=== PATIENT | female | born 1960 | race Caucasian/White ===

== ENCOUNTER → 2016-06-23 | Outpatient (CLI) | payer MEDICARE ==
[2015-12-04 14:44] VITALS: BP 114/62
[~2016-06-23] MED LIST: ALBU2.5V5 NEB; ASPI-482 PO; ATOR10TA PO; CLON0.5T3 PO; DOXY100T PO; LEVO25TA2 PO; LITH150C PO; OMEP20CA9 PO
--- NOTE | 2016-06-23 16:26 | KCIC ---
PROCEDURE Right shoulder, three views. HISTORY Right shoulder pain since December. History of calcified lung masses on CT. COMPARISON CT chest with contrast September 25, 2013. FINDINGS No acute fracture or dislocation of the right shoulder. Acromioclavicular arthropathy. No glenohumeral degenerative changes are seen. The partially calcified masses in the visualized right lung are stable compared to the prior CT. Soft tissues unremarkable. IMPRESSION No acute fracture or dislocation of the right shoulder. Electronically signed by: Audi Warren MD (Jun 23, 2016 16:24:52)
== END | disposition home or self-care (01) ==
LOC: KCIC 10:25
PROVIDERS: ATTEND Family Medicine
DX: M25.511 Pain in right shoulder (principal)
CPT/HCPCS: 73030

== ENCOUNTER → 2016-07-29 | Outpatient (CLI) | payer MEDICARE ==
[2015-12-04 14:44] VITALS: BP 114/62
--- NOTE | 2016-07-29 12:50 | KCIC ---
PROCEDURE MR of the right shoulder HISTORY Right shoulder pain since March. Limited range of motion. TECHNIQUE Standard noncontrast images are obtained. COMPARISON FINDINGS The acromioclavicular joint is mildly degenerative. There is some thickening and signal of the rotator cuff compatible with tendinosis. Partial thickness undersurface tear of the rotator cuff at the supraspinatus tendon and anterior infraspinatus tendon, about 80 percent deep. No complete through and through bursal layer tear. No significant subdeltoid bursal fluid. There is acute intramuscular edema/fluid within the infraspinatus compatible with an acute strain. The subscapularis tendon appears intact. No significant joint effusion. No evidence of a labrum tear. No paralabral cyst. No acute articular cartilage defect. The biceps tendon is intact. There is no bone lesion or acute fracture. IMPRESSION Deep undersurface tear of the supraspinatus tendon and anterior infraspinatus tendon. No through and through rupture. Acute intramuscular strain of the infraspinatus. Electronically signed by: Elfego Velázquez MD (Jul 29, 2016 12:49:03)
== END | disposition home or self-care (01) ==
LOC: KCIC MRI 11:34
PROVIDERS: ATTEND Orthopaedic Surgery Sports Medicine
DX: M25.511 Pain in right shoulder (principal)
CPT/HCPCS: 73221

== ENCOUNTER 2016-11-01 08:46 | Day surgery (SDC) | payer MEDICARE ==
[~2016-11-01] VITALS: Ht 167.6 cm; Wt 86.2 kg
[~2016-11-01 08:46] MED LIST changes: +CHOL10003 PO; +ESCITALOPRAM OX10 MG PO; +FERR-26 PO; +HYDROmorphone 2 MG/ML VIAL IV PRN; +IV RINGERS,LACTATED 1000ML 1,000 ML IV SCH; +LAMO150T PO; +LEVO125T5 PO; -LEVO25TA2 PO; +LEVO25TA55 PO; +LIDOCAINE 1% 1 ML SYRINGE. ID PRN; +LOVA20TA2 PO; +MEPERIDINE PF 25 MG/ML VIAL. IV PRN; +MIDAZOLAM HCL/PF 2 MG/2 ML VIAL. IV PRN; +MORPHINE SULFATE 4 MG/ML DISP.SYRIN. IV PRN; +PROCHLORPERAZINE 10 MG/2 ML VIAL. IV PRN; +TRAM50TA PO; +VITA150T PO; +diphenhydrAMINE 50 MG/ML VIAL IV PRN; +fentaNYL PF VIAL 100 MCG/2 ML VIAL IV PRN
[2016-11-01] MEDS ORDERED: LIDOCAINE 1% PF 30 ML VIAL. ONE (09:09)
[2016-11-01] MEDS ORDERED: BUPIVACAINE MPF 0.5% 30 ML VIAL. ONE ×2 (09:09→09:25)
[2016-11-01] MEDS ORDERED: EPINEPHrine VIAL 30 MG/30 ML VIAL ONE (09:09)
--- NOTE | 2016-11-01 09:10 | DISCH ---
DISCHARGE INSTRUCTIONS Condition on Discharge Condition on Discharge: Stable Activity After Discharge Activity Instructions for Disc: Other, see below Other activity instructions: arm to remain in sling Bathing Instructions: Shower-keep dressing dry Weight Bearing Status after Di: Non weight bearing Diet after Discharge Diet after Discharge: Regular Wound Incision Care Wound/Incision Care: Ice to area for comfort, Keep wound/cast CDI, Change dressing Contacting the DR. after DC Call your doctor for: Concerns you may have Follow-Up Follow up with: Nevin in 2wks Treatment/Equipment after DC Adaptive Equipment Issued: None ANGELIQUE GELLER II, MD Nov 01, 2016 09:10
--- NOTE | 2016-11-01 09:12 | PDOC ---
BRIEF OPERATIVE NOTE Date: Nov 01, 2016 Pre-Op Diagnosis R shoulder RTC tear; mass Post-Op Diagnosis same Procedure Performed R shoulder scope, RTC repair; mass excision Surgeon Nevin Escalante Anesthesia Type: General, Regional Blood Loss 25mL Specimens Obtained soft tissue mass sent to pathology Complications none ANGELIQUE GELLER II, MD Nov 01, 2016 09:12
[2016-11-01] MEDS ORDERED: PROPOFOL 20 ML IV ONE (09:29)
[2016-11-01] MEDS ORDERED: DEXAMETHASONE SOD PHOS 20 MG/5 ML VIAL. ONE (09:29)
[2016-11-01] MEDS ORDERED: FAMOTIDINE 20 MG/2 ML VIAL ONE (09:29)
[2016-11-01] MEDS ORDERED: ONDANSETRON PF 4 MG/2 ML VIAL. ONE (09:29)
[2016-11-01] MEDS ORDERED: LIDOCAINE 2% PF Vial for OR 5 ML VIAL. ONE (09:29)
[2016-11-01] MEDS ORDERED: fentaNYL PF VIAL 100 MCG/2 ML VIAL ONE (09:29)
[2016-11-01] MEDS ORDERED: ROCURONIUM 50 MG/5 ML VIAL. ONE (09:30)
--- NOTE | 2016-11-01 09:50 | PDOC4 ---
Operative Note Operative Note Date of surgery 11/01/2016 Surgeon Hamilton Escalante Anesthesia Gen. Preoperative diagnosis right shoulder rotator cuff tear and cyst at right shoulder postoperative diagnosis same Procedure performed: #1 arthroscopic right shoulder rotator cuff repair #2 cyst excision from right shoulder Findings: She had some minor fraying of her labrum and biceps tendon. Glenohumeral cartilage was intact. She had a partial-thickness tear involving greater than 50% of the tendon at the's leading edge of the supraspinatus. The mass was firm and well encapsulated with fibrotic tissue and was easily excised. Specimens cyst was sent to pathology Components inserted [employer] helacoil anchor Complications none Estimated blood loss 25mL Reason for procedure: Patient is a very pleasant 56-year-old female with persistent pain and dysfunction of her right shoulder. Clinical and radiographic workup including MRI were consistent with the above preoperative diagnosis and after failure of conservative therapies, we had a discussion of the risks, benefits, and alternatives to proceeding with the above surgery and she elected to proceed. Description of procedure: Patient was greeted in the preoperative area by myself for the correct extremity was marked and verified. She was taken to the preoperative holding area where a regional nerve block was placed. She was taken back to the operative suite and transferred Chumley supine to the OR table and had successful induction of a general anesthesia. We placed a large pad under her hips and set her up in a beachchair position. Her C-spine was maintained in a neutral position and all pressure points were padded. She was secured to the bed. We then proceeded to prep and drape right upper extremity in our usual sterile fashion and conducted a standard preoperative timeout. Next , I palpated and marked her surface anatomy and used a spinal needle to localize her posterior superior portal and then introduced a blunt arthroscopic trocar into the glenohumeral joint. I then used a spinal needle to localize an anterosuperior portal and incised skin in accordance with this. I then introduced a blunt trocar to dilate the hole followed by my probe. I conducted my diagnostic arthroscopy with the above-noted findings. I then began debriding the tendon and preparing the bony bed from an intra-articular vantage point. I then passed a PDS suture through the damaged portion of the tendon using a spinal needle. I then withdrew my camera and arthroscopic instrumentation and reintroduced the blunt arthroscopic trocar into the subacromial space and performed a bursectomy. I identified the PDS suture and was easily able to insert a blunt trocar into the tendon there. I continued my debridement of this area I continued on with my tendon and footprint preparation. After this, I used the trocar to drill holes for my suture suture anchor, using 1 of these. I then made a stab incision for an accessory anterolateral portal for suture management. I withdrew the sutures through this hole. I then placed a large cannula through the lateral portal. I then used the [employer]ce[employer] passing device to shuttle the sutures through in a simple configuration and tied them down from posterior to anterior. I took the arm through gentle range of motion and noted no gapping at the repair site. I then removed all excess arthroscopic fluid. I then withdrew the arthroscopic instrumentation. I then used a scalpel to incise the skin over the mass and tenotomies to dissect around the mass and delivered from the operative field with the assistance of an Allis clamp. Electrocautery was used in the wound bed for hemostasis. After this I injected local anesthetic into the subacromial space and kaycee-her portal incisions. The mass was sent off for specimen. The portals were closed with simple interrupted 3-0 nylon. I used inverted interrupted 20 at the subcutaneous tissue over the cyst excision area followed by nylon for skin. The shoulder was cleansed and dried and a sterile dressing was applied. Prior to a, pushing wound closure all counts were reported as correct 2. HAMILTON GELLER II, MD Nov 01, 2016 09:50
[2016-11-01] MEDS ORDERED: DOCU-109 PO (10:14)
[2016-11-01] MEDS ORDERED: ONDA4TAB10 SL (10:23)
[2016-11-01] MEDS ORDERED: OXYC-323 PO (10:29)
[2016-11-01] MEDS ORDERED: HYDR-2762 PO (10:31)
[2016-11-01] MEDS ORDERED: GLYCOPYRROLATE 1 MG/5 ML VIAL. ONE (10:43)
[2016-11-01] MEDS ORDERED: NEOSTIGMINE METHYLSULFATE 5 MG/5 ML SYRINGE. ONE (10:43)
[2016-11-01] MEDS ORDERED: SEVOFLURANE 61 TO 120 MINUTES. IH ONE (10:48)
[2016-11-01] MEDS: MORPHINE SULFATE 4 MG/ML DISP.SYRIN. IV PRN ×2 (11:14→11:54)
[2016-11-01] MEDS ORDERED: oxyCODONE/APAP 5/325 1 TAB TABLET PO ONE (11:45)
[2016-11-01 13:00] VITALS: BP 97/53
== END 2016-11-01 13:15 | disposition home or self-care (01) ==
LOC: SURG 08:46
PROVIDERS: ATTEND Orthopaedic Surgery Sports Medicine
DX: S46.011A Strain of muscle(s) and tendon(s) of the rotator cuff of right shoulder, initial encounter (principal); X58.XXXA Exposure to other specified factors, initial encounter; Y93.89 Activity, other specified; Y92.89 Other specified places as the place of occurrence of the external cause; Y99.9 Unspecified external cause status; Z86.69 Personal history of other diseases of the nervous system and sense organs; Z86.73 Personal history of transient ischemic attack (TIA), and cerebral infarction without residual deficits; E78.00 Pure hypercholesterolemia, unspecified; J44.9 Chronic obstructive pulmonary disease, unspecified; E66.9 Obesity, unspecified; Z68.43 Body mass index [BMI] 50.0-59.9, adult; K21.9 Gastro-esophageal reflux disease without esophagitis; Z98.51 Tubal ligation status; Z87.39 Personal history of other diseases of the musculoskeletal system and connective tissue; Z96.651 Presence of right artificial knee joint; Z86.39 Personal history of other endocrine, nutritional and metabolic disease; E03.9 Hypothyroidism, unspecified; F41.9 Anxiety disorder, unspecified; F32.9 Major depressive disorder, single episode, unspecified; Z72.0 Tobacco use; Z88.6 Allergy status to analgesic agent; Z88.3 Allergy status to other anti-infective agents
CPT/HCPCS: 29827; C1713; C1782; J0171; J0690; J0780; J1100; J2250; J2270; J2405; J2704; J2710; J3010; J3490; S0028

== ENCOUNTER → 2017-02-14 | Outpatient (CLI) | payer MEDICARE ==
[~2017-02-14] MED LIST changes: +DOCU-109 PO; +HYDR-2762 PO; -HYDROmorphone 2 MG/ML VIAL IV PRN; -IV RINGERS,LACTATED 1000ML 1,000 ML IV SCH; -LIDOCAINE 1% 1 ML SYRINGE. ID PRN; -MEPERIDINE PF 25 MG/ML VIAL. IV PRN; -MIDAZOLAM HCL/PF 2 MG/2 ML VIAL. IV PRN; -MORPHINE SULFATE 4 MG/ML DISP.SYRIN. IV PRN; +ONDA4TAB10 SL; +OXYC-323 PO; -PROCHLORPERAZINE 10 MG/2 ML VIAL. IV PRN; -diphenhydrAMINE 50 MG/ML VIAL IV PRN; -fentaNYL PF VIAL 100 MCG/2 ML VIAL IV PRN
--- NOTE | 2017-02-15 11:56 | KCIC ---
DATE: 02/14/2017 EXAM: MAMMO KHALIF SCREENING BILATERAL HISTORY: Screening COMPARISON: 5 years ago This study was interpreted with the benefit of Computerized Aided Detection (CAD). FINDINGS: Breast Density: FATTY The Breast Parenchyma is primarily fatty replaced. Breast parenchyma level density A.. There is a well-defined nodule in the periareolar position of the left breast. This appears unchanged relative to the previous exam. No spiculated mass is seen in either breast. No suspect calcifications are seen. The appearance of the breasts, overall, as unchanged IMPRESSION: Benign findings BI-RADS CATEGORY: 2 BENIGN FINDING(S) RECOMMENDED FOLLOW-UP: 12M 12 MONTH FOLLOW-UP PQRS compliance statement: Patient information was entered into a reminder system with a target due date 02/14/2018 for the next mammogram. Mammography is a sensitive method for finding small breast cancers, but it does not detect them all and is not a substitute for careful clinical examination. A negative mammogram does not negate a clinically suspicious finding and should not result in delay in biopsying a clinically suspicious abnormality. "Our facility is accredited by the [employer] Mammography Program."
== END | disposition home or self-care (01) ==
LOC: KCIC MAMMO 14:36
PROVIDERS: ATTEND Family Medicine
DX: Z12.31 Encounter for screening mammogram for malignant neoplasm of breast (principal)
CPT/HCPCS: 77063; G0202; 77067

== ENCOUNTER 2017-03-30 17:58 | Emergency (ER) | payer MEDICARE ==
[~2017-03-30] VITALS: Ht 167.6 cm; Wt 86.2 kg
[~2017-03-30 17:58] MED LIST changes: -LAMO150T PO; +LAMO150T2 PO
[2017-03-30] MEDS ORDERED: IPRATRPIUM/ALBUTEROL 0.5/2.5MG 3 ML NEBU. NEB ONE (18:30)
[2017-03-30] MEDS ORDERED: IV NORMAL SALINE 1000ML BAG 1,000 ML IV SCH (19:01)
[2017-03-30 19:12] LABS: BILIRUBIN,URINE NEGATIVE (NEG); GLUCOSE,URINE NEGATIVE (NEG); NITRITE,URINE NEGATIVE (NEG); PROTEIN,URINE NEGATIVE (NEG-TRACE); UROBILINOGEN,URINE 0.2 mg/dL (0.2 mg/dL)
[2017-03-30] MEDS ORDERED: fentaNYL PF VIAL 100 MCG/2 ML VIAL IV PRN (19:15)
[2017-03-30] MEDS ORDERED: methylPREDNISolone SOD SUCC PF 125 MG/2 ML VIAL. IV ONE (19:15)
[2017-03-30] MEDS ORDERED: ONDANSETRON PF 4 MG/2 ML VIAL. IV ONE (19:15)
[2017-03-30 19:21] LABS: BACTERIA,URINE FEW /HPF (0-FEW); RBC,URINE 0 /HPF (0-2); SQUAMOUS EPITHELIAL CELL,UR MOD /LPF
[2017-03-30 19:22] LABS: YEAST,URINE PRESENT /HPF
[2017-03-30 19:41] LABS: BASO % 1 % (0-3); EOS % 6 % (0-3); HEMATOCRIT 42.3 % (36.0-47.0); HEMOGLOBIN 14.2 g/dL (12.0-15.5); LYMPH % 40 % (24-48); MEAN CORPUSCULAR HEMOGLOBIN 32 pg (25-35); MEAN CORPUSCULAR HGB CONC 34 g/dL (31-37); MEAN CORPUSCULAR VOLUME 94 fL (79-100); MONO % 6 % (0-9); NEUT % 47 % (31-73); PLATELET COUNT 210 x10^3/uL (140-400); RED CELL DISTRIBUTION WIDTH 14.4 % (11.5-14.5); WHITE BLOOD COUNT 7.5 x10^3/uL (4.0-11.0)
--- NOTE | 2017-03-30 19:43 | PHYS DOC ---
Past Medical History Past Medical History: High Cholesterol, Other Additional Past Medical Histor: HISTOPLASMOSIS; hernia Past Surgical History: , Other Additional Past Surgical Histo: L FEMUR biop; rot cuff, GASTRIC BYPASS, ABLASION, REMOVED HARDWARE,SINUS SX Alcohol Use: None Drug Use: None Adult General Chief Complaint Chief Complaint: SHORTNESS OF BREATH HPI HPI Patient is a 56 year old female who presents with complaint of cough and shortness of breath over the past 4-5 days. Patient states that she started having symptoms shortly after Thanksgiving. Patient states that she had a grandson who has had similar symptoms and she states that he was recently diagnosed with pneumonia. Patient states that she has history of COPD and states that her symptoms have been worsening. Patient has been using over-the- counter cough and cold medication as well as albuterol with no significant improvement in symptoms. Patient states that she has had productive cough of yellowish sputum. Patient states that her coughing is causing aggravation of her left-sided hernia which she has received a previous mesh repair in the past. Patient denies any nausea, vomiting, fever, or diarrhea. Review of Systems Review of Systems Constitutional: Denies fever or chills [] Eyes: Denies change in visual acuity, redness, or eye pain [] HENT: Denies nasal congestion or sore throat [] Respiratory: Productive cough, shortness of breath[] Cardiovascular: Denies chest pain or edema[] GI: Pain near abdominal hernia site, denies nausea, vomiting, or diarrhea[] : Denies dysuria or hematuria [] Musculoskeletal: Denies back pain or joint pain [] Integument: Denies rash or skin lesions [] Neurologic: Denies headache, focal weakness or sensory changes [] All other systems were reviewed and found to be within normal limits, except as documented in this note. Current Medications Current Medications Current Medications Medications (Trade) Dose Ordered Sig/Bishnu Start Time Stop Time Status Last Admin Dose Admin Albuterol/ Ipratropium (Duoneb) 3 ml 1X ONCE 03/30/17 18:30 03/30/17 18:31 DC 03/30/17 18:39 3 ML Fentanyl Citrate (Fentanyl 2ml Vial) 25 mcg PRN Q15MIN PRN 03/30/17 19:15 03/31/17 19:14 03/30/17 19:43 25 MCG Methylprednisolone Sodium Succinate (SOLU-Medrol 125MG VIAL) 125 mg 1X ONCE 03/30/17 19:15 03/30/17 19:16 DC 03/30/17 19:43 125 MG Ondansetron HCl (Zofran) 4 mg 1X ONCE 03/30/17 19:15 03/30/17 19:16 DC 03/30/17 19:44 4 MG Sodium Chloride 1,000 ml @ 1,000 mls/hr Q1H 03/30/17 19:01 03/30/17 20:00 DC 03/30/17 19:43 1,000 MLS/HR Allergies Allergies Allergies Coded Allergies Type Severity Reaction Last Updated Verified codeine Allergy Intermediate palpitations 11/01/16 Yes levofloxacin Allergy Intermediate severe projectile vomiting 11/01/16 Yes Physical Exam Physical Exam Constitutional: Alert, afebrile, appears in [id number]-nimphozl discomfort. [] HENT: Normocephalic, atraumatic, bilateral external ears normal, oropharynx moist, no oral exudates, nose normal. [] Eyes: PERRLA, EOMI, conjunctiva normal, no discharge. [] Neck: Normal range of motion, no tenderness, supple, no stridor. [] Cardiovascular:Heart rate regular rhythm, no murmur [] Lungs & Thorax: Mildly restricted air movement bilaterally, no rales, no wheezes [] Abdomen: Bowel sounds normal, soft, no tenderness, no masses, no pulsatile masses. [] Skin: Warm, dry, no erythema, no rash. [] Back: No tenderness, no CVA tenderness. [] Extremities: No tenderness, no cyanosis, no clubbing, ROM intact, no edema. [] Neurologic: Alert and oriented X 3, normal motor function, normal sensory function, no focal deficits noted. [] Current Patient Data Vital Signs Vital Signs Date Time Temp Pulse Resp B/P (MAP) Pulse Ox O2 Delivery O2 Flow Rate FiO2 03/30/17 19:43 16 93 Room Air 03/30/17 18:02 98.6 79 116/56 (76) 98.6 Lab Values Laboratory Tests Test 03/30/17 18:10 03/30/17 19:30 Urine Collection Type Unknown Urine Color Yellow Urine Clarity Clear Urine pH 6.0 Urine Specific [place] 1.015 Urine Protein Negative mg/dL (NEG-TRACE) Urine Glucose (UA) Negative mg/dL (NEG) Urine Ketones (Stick) Negative mg/dL (NEG) Urine Blood Negative (NEG) Urine Nitrite Negative (NEG) Urine Bilirubin Negative (NEG) Urine Urobilinogen Dipstick 0.2 mg/dL (0.2 mg/dL) Urine Leukocyte Esterase Small (NEG) Urine RBC 0 /HPF (0-2) Urine WBC 1-4 /HPF (0-4) Urine Squamous Epithelial Cells Mod /LPF Urine Bacteria Few /HPF (0-FEW) Urine Mucus Mod /LPF Urine Yeast Present /HPF White Blood Count 7.5 x10^3/uL (4.0-11.0) Red Blood Count 4.50 x10^6/uL (3.50-5.40) Hemoglobin 14.2 g/dL (12.0-15.5) Hematocrit 42.3 % (36.0-47.0) Mean Corpuscular Volume 94 fL (79-100) Mean Corpuscular Hemoglobin 32 pg (25-35) Mean Corpuscular Hemoglobin Concent 34 g/dL (31-37) Red Cell Distribution Width 14.4 % (11.5-14.5) Platelet Count 210 x10^3/uL (140-400) Neutrophils (%) (Auto) 47 % (31-73) Lymphocytes (%) (Auto) 40 % (24-48) Monocytes (%) (Auto) 6 % (0-9) Eosinophils (%) (Auto) 6 % (0-3) H Basophils (%) (Auto) 1 % (0-3) Neutrophils # (Auto) 3.5 x10^3uL (1.8-7.7) Lymphocytes # (Auto) 3.0 x10^3/uL (1.0-4.8) Monocytes # (Auto) 0.5 x10^3/uL (0.0-1.1) Eosinophils # (Auto) 0.5 x10^3/uL (0.0-0.7) Basophils # (Auto) 0.0 x10^3/uL (0.0-0.2) Sodium Level 140 mmol/L (136-145) Potassium Level 3.8 mmol/L (3.5-5.1) Chloride Level 104 mmol/L (98-107) Carbon Dioxide Level 30 mmol/L (21-32) Anion Gap 6 (6-14) Blood Urea Nitrogen 10 mg/dL (7-20) Creatinine 0.8 mg/dL (0.6-1.0) Estimated GFR (Cockcroft-Gault) 74.7 BUN/Creatinine Ratio 13 (6-20) Glucose Level 99 mg/dL (70-99) Calcium Level 9.3 mg/dL (8.5-10.1) Total Bilirubin 0.2 mg/dL (0.2-1.0) Aspartate Amino Transferase (AST) 17 U/L (15-37) Alanine Aminotransferase (ALT) 22 U/L (14-59) Alkaline Phosphatase 86 U/L (46-116) Total Protein 6.7 g/dL (6.4-8.2) Albumin 3.3 g/dL (3.4-5.0) L Albumin/Globulin Ratio 1.0 (1.0-1.7) Laboratory Tests 03/30/17 19:30 Laboratory Tests 03/30/17 19:30 EKG EKG Interpreted by me: Heart rate 64, sinus rhythm, normal intervals, normal axis, no acute ST/T-wave abnormalities present[] Radiology/Procedures Radiology/Procedures Two-view chest x-ray interpreted by me: Stable histoplasmosis lesions, no new infiltrates or effusions, normal cardiac silhouette[] Course & Med Decision Making Course & Med Decision Making Pertinent Labs and Imaging studies reviewed. (See chart for details) Patient was given DuoNeb and Solu-Medrol in the emergency department. Patient's chest x-ray shows no evidence of acute pneumonia and patient's lab work is unremarkable at this time. The patient's symptoms appear consistent with an upper respiratory infection and exacerbation of patient's underlying COPD. Patient will be continued on oral prednisone for treatment and advised to use her albuterol nebulizer 1-2 unit doses every 4 hours as needed for wheezing. Recommended follow-up with primary doctor in 2-3 days for reevaluation. Advised return to the emergency department for any worsening symptoms. Patient voiced understanding and in agreement with treatment plan. Dragon Disclaimer Dragon Disclaimer This electronic medical record was generated, in whole or in part, using a voice recognition dictation system. Departure Departure Impression: Primary Impression: COPD exacerbation Additional Impression: Upper respiratory infection Disposition: 01 HOME, SELF-CARE Condition: IMPROVED Referrals: JAMES NEWBY MD (PCP) Patient Instructions: Chronic Obstructive Pulmonary Disease, Upper Respiratory Infection, Adult Additional Instructions: Follow-up with your primary doctor in 2-3 days for reevaluation. Return to the emergency department for any worsening symptoms. Scripts Prednisone (PREDNISONE) 10 Mg Tablet 10 MG PO UD for PREDNISONE TAPER, #39 TAB 0 Refills Take 3 tablets by mouth twice a day for 3 days, then take 2 tablets by mouth twice a day for 3 days, then take 1 tablet by mouth twice a day for 3 days, then take 1 tablet by mouth daily x 3 days, then stop. Prov: ALTHEA VALERIO MD 03/30/17 Problem Qualifiers Additional Impression: Upper respiratory infection URI type: unspecified URI Qualified Codes: J06.9 - Acute upper respiratory infection, unspecified ALTHEA VALERIO MD Mar 30, 2017 19:43
[2017-03-30 19:54] LABS: CALCIUM 9.3 mg/dL (8.5-10.1); CREATININE 0.8 mg/dL (0.6-1.0); GFR 74.7; POTASSIUM 3.8 mmol/L (3.5-5.1)
[2017-03-30 19:59] LABS: ALBUMIN 3.3 g/dL (3.4-5.0); TOTAL BILIRUBIN 0.2 mg/dL (0.2-1.0); TOTAL PROTEIN 6.7 g/dL (6.4-8.2)
[2017-03-30] MEDS ORDERED: PRED-220 PO (20:30)
[2017-03-30 20:34] VITALS: BP 105/57
[2017-03-30 20:56] LABS: OBC FLU VALID
--- NOTE | 2017-03-31 06:59 | EKG ---
[facility] [address] [place] [address] Test Date: 2017-03-30 Test Time: 18:16:08 Pat Name: AKOSUA COTTON Department: Room: Gender: F Manager [employer]: : 1960 Requested By: ALTHEA VALERIO Order Number: [id number] Reading MD: Linden Garcia Measurements Intervals Likely Rate: 64 P: 41 VT: 164 QRS: 71 QRSD: 92 T: 31 QT: 422 QTc: 440 Interpretive Statements SINUS RHYTHM NO SPECIFIC ECG ABNORMALITIES Electronically Signed On 04-04-2017 16:46:49 [employer]ACHINE [employer] by Linden Garcia
--- NOTE | 2017-03-31 08:06 | RAD ---
Chest, 2 views, 03/30/2017: History: Cough Comparison is made to a study from 12/03/2015. The heart size is normal. There are multiple large bilateral pulmonary masses. The previous CT study from 09/25/2013 demonstrated central calcifications. The given history is that of old histoplasmosis. Allowing for technical differences between the current PA view and a prior AP view, no definite interval change in these nodules is appreciated. The largest of these nodules measure approximately 6 cm. In diameter. No superimposed acute infiltrate is seen. There is no evidence of pleural fluid. IMPRESSION: 1. Large calcified bilateral pulmonary nodules compatible with the given history of histoplasmosis. 2. No acute abnormality is detected.
== END 2017-03-30 20:56 | disposition home or self-care (01) ==
LOC: ER 17:58
DX: J44.1 Chronic obstructive pulmonary disease with (acute) exacerbation (principal); J06.9 Acute upper respiratory infection, unspecified; E78.00 Pure hypercholesterolemia, unspecified; Z98.84 Bariatric surgery status; Z88.5 Allergy status to narcotic agent; Z88.1 Allergy status to other antibiotic agents
CPT/HCPCS: 36415; 71020; 80053; 81001; 85025; 87086; 87804; 93005; 94250; 94640; 96361; 96374; 96375; 99285; J2405; J2930; J3010; J7030; J7620

== ENCOUNTER → 2017-06-24 | Outpatient (CLI) | payer OTHER | END | disposition home or self-care (01) | LOC: KCIC CT 09:13 | DX: J32.0 Chronic maxillary sinusitis (principal); J01.01 Acute recurrent maxillary sinusitis; R51 Headache | CPT/HCPCS: 70486 ==

== ENCOUNTER 2018-03-28 17:36 | Emergency (ER) | payer OTHER ==
[~2018-03-28] VITALS: Ht 165.1 cm; Wt 92.5 kg
[~2018-03-28 17:36] MED LIST changes: +CLON0.5T11 PO; -CLON0.5T3 PO; -FERR-26 PO; +FERR325T14 PO; -HYDR-2762 PO; +HYDR-2765 PO; -OXYC-323 PO; +OXYC1TAB15 PO; +PRED-220 PO
[2018-03-28 18:05] VITALS: BP 117/62
--- NOTE | 2018-03-28 20:58 | PHYS DOC ---
Past Medical History Past Medical History: High Cholesterol, Other Additional Past Medical Histor: HISTOPLASMOSIS; hernia Past Surgical History: , Other Additional Past Surgical Histo: L FEMUR biop;Rrot cuff, GASTRIC BYPASS, ABLASION, REMOVED HARDWARE,SINUS SX Alcohol Use: None Drug Use: None Adult General Chief Complaint Chief Complaint: [facility] HPI Patient is a 57 year old female who presents with states that she fell into the wall today by slipping and hurt her right shoulder. Patient states that 2-3 months ago she had right rotator cuff repair. Patient has right shoulder pain that radiates down to the front of her right shoulder. Patient has limited range of motion the shoulder due to pain. There is no swelling or deformity in the shoulder. Patient states she took tramadol this morning. Review of Systems Review of Systems Constitutional: Denies fever or chills [] Eyes: Denies change in visual acuity, redness, or eye pain [] HENT: Denies nasal congestion or sore throat [] Respiratory: Denies cough or shortness of breath [] Cardiovascular: No additional information not addressed in HPI [] GI: Denies abdominal pain, nausea, vomiting, bloody stools or diarrhea [] : Denies dysuria or hematuria [] Musculoskeletal: Denies back pain. Right shoulder joint pain [] Integument: Denies rash or skin lesions [] Neurologic: Denies headache, focal weakness or sensory changes [] Endocrine: Denies polyuria or polydipsia [] All other systems were reviewed and found to be within normal limits, except as documented in this note. Allergies Allergies Allergies Coded Allergies Type Severity Reaction Last Updated Verified codeine Allergy Intermediate palpitations 11/01/16 Yes levofloxacin Allergy Intermediate severe projectile vomiting 11/01/16 Yes Physical Exam Physical Exam Constitutional: Well developed, well nourished, no acute distress, non-toxic appearance. [] HENT: Normocephalic, atraumatic, bilateral external ears normal, oropharynx moist, no oral exudates, nose normal. [] Eyes: PERRLA, EOMI, conjunctiva normal, no discharge. [] Neck: Normal range of motion, no tenderness, supple, no stridor. [] Cardiovascular:Heart rate regular rhythm, no murmur [] Lungs & Thorax: Bilateral breath sounds clear to auscultation [] Abdomen: Bowel sounds normal, soft, no tenderness, no masses, no pulsatile masses. [] Skin: Warm, dry, no erythema, no rash. [] Back: No tenderness, no CVA tenderness. [] Extremities: Right shoulder tenderness, no cyanosis, no clubbing, ROM intact, no edema. [] Neurologic: Alert and oriented X 3, normal motor function, normal sensory function, no focal deficits noted. [] Psychologic: Affect normal, judgement normal, mood normal. [] Current Patient Data Vital Signs Vital Signs Date Time Temp Pulse Resp B/P (MAP) Pulse Ox O2 Delivery O2 Flow Rate FiO2 03/28/18 18:05 98.2 66 18 117/62 (80) 95 Room Air 98.2 EKG EKG [] Radiology/Procedures Radiology/Procedures chest x ray rib xray, shoulder xray Course & Med Decision Making Course & Med Decision Making Patient is a 57 year old female who presents with states that she fell into the wall today by slipping and hurt her right shoulder. Patient states that 2-3 months ago she had right rotator cuff repair. Patient has right shoulder pain that radiates down to the front of her right shoulder. Patient has limited range of motion the shoulder due to pain. There is no swelling or deformity in the shoulder. Patient states she took tramadol this morning. Patient states her right ribs also hurt from a previous fall. Lungs are clear to auscultation in all lobes. Heart regular without murmur. There is pain with palpation to that right shoulder and to the front of the right shoulder there is no bruising or deformity seen. There is no swelling. Her right upper ribs aren't tender to palpation but there is no bruising or deformity seen. Patient is given an incentive spirometer to use and to follow-up with her primary care. Her x-rays look to have no acute findings. Patient does have a history of cystoplasmosis. Dragon Disclaimer Dragon Disclaimer This electronic medical record was generated, in whole or in part, using a voice recognition dictation system. Departure Departure Impression: Primary Impression: Shoulder contusion Disposition: 01 HOME, SELF-CARE Condition: STABLE Referrals: JAMES NEWBY MD (PCP) Patient Instructions: Contusion Additional Instructions: follow up with your primary care. use incentive spirometer Attending Signature Attending Signature I have reviewed the PA/HOST/HOSTESS RESTAURANT's note and plan of care. I was available for consultation as needed during the patient's visit in the emergency department. I agree with the clinical impression, plan, and disposition. Problem Qualifiers Primary Impression: Shoulder contusion Encounter type: initial encounter Laterality: right Qualified Codes: S40.011A - Contusion of right shoulder, initial encounter SATNAM HI APRN Mar 28, 2018 20:58 FRANCES GARCÍA DO Mar 29, 2018 02:14
--- NOTE | 2018-03-29 00:27 | RAD ---
Right rib series to include a PA chest radiograph 03/28/2018 CLINICAL HISTORY: Fall with right-sided chest pain. A PA digital radiograph of the chest was obtained. Two AP and two oblique digital radiographs of the right ribs were obtained. Comparison study is dated 12/03/2015. The cardiac silhouette is normal in size. The thoracic aorta is tortuous. Multiple masses are seen scattered throughout both lungs which measure 3 to 6 cm in size. They have not significantly changed. No acute pulmonary infiltrate is seen. No pleural effusion or pneumothorax is noted. Surgical clips are seen within the right upper quadrant of the abdomen consistent with a cholecystectomy. Degenerative changes are seen involving the thoracic spine. The osseous structures are grossly intact. Specifically no right-sided rib fracture is seen. IMPRESSION: No right-sided rib fracture is seen. Electronically signed by: Caleb Hernandez MD (03/29/2018 12:24 AM) [facility]
--- NOTE | 2018-03-29 00:28 | RAD ---
Three-view right shoulder radiographs 03/28/2018 CLINICAL HISTORY: Fall with injury to the right shoulder. AP internal and external rotation and transscapular digital radiographs of the right shoulder were obtained. No fracture or dislocation right shoulder is seen. Mild to moderate degenerative changes are seen involving the right glenohumeral joint and right AC joint. Partially calcified masses are seen involving the right lung. IMPRESSION: Degenerative changes are seen within the right shoulder. No acute fracture or dislocation is seen. Electronically signed by: Caleb Hernandez MD (03/29/2018 12:25 AM) [facility]
== END 2018-03-28 21:00 | disposition home or self-care (01) ==
LOC: ER 17:36
DX: S40.011A Contusion of right shoulder, initial encounter (principal); R07.89 Other chest pain; E78.00 Pure hypercholesterolemia, unspecified; Z88.1 Allergy status to other antibiotic agents; W01.0XXA Fall on same level from slipping, tripping and stumbling without subsequent striking against object, initial encounter; Y93.89 Activity, other specified; Y92.89 Other specified places as the place of occurrence of the external cause; Y99.8 Other external cause status
CPT/HCPCS: 71101; 73030; 99284

== ENCOUNTER 2018-06-22 09:53 | Emergency (ER) | payer OTHER ==
[~2018-06-22] VITALS: Ht 167.6 cm; Wt 97.5 kg
[~2018-06-22 09:53] MED LIST changes: +OMEP20CA10 PO; -OMEP20CA9 PO
[2018-06-22] MEDS ORDERED: fentaNYL PF VIAL 100 MCG/2 ML VIAL IV PRN (10:30)
[2018-06-22] MEDS ORDERED: IV NORMAL SALINE 1000ML BAG 1,000 ML IV SCH (10:30)
[2018-06-22] MEDS ORDERED: ONDANSETRON PF 4 MG/2 ML VIAL. IV ONE (10:30)
[2018-06-22] MEDS ORDERED: IOHEXOL 300 MG/ML 100ML VIAL. IV ONE (10:45)
--- NOTE | 2018-06-22 10:48 | PHYS DOC ---
Past Medical History Past Medical History: High Cholesterol, Other Additional Past Medical Histor: HISTOPLASMOSIS; hernia Past Surgical History: , Other Additional Past Surgical Histo: L FEMUR biop;Rrot cuff, GASTRIC BYPASS, ABLASION, REMOVED HARDWARE,SINUS SX Alcohol Use: None Drug Use: None Adult General Chief Complaint Chief Complaint: ABDOMINAL PAIN HPI HPI Patient is a 58-year-old female who presents with complaint of left-sided mid abdominal pain for the last few days. Patient states that she has had an abdominal wall hernia for quite some time that she states typically reduces when she lies down but she states that for at least the last 3 days it does not seem as if it has been reducing. She states that she has a great deal of pain on the left side of her abdomen which is relieved by flexing her hips and knees. She rates the pain currently at an 8-9 out of 10. She also indicates that she has had nausea and vomiting for the last 3 days and has had no bowel movements. She does admit to a small amount of flatus however. Patient states that the pain is worsened when she is standing upright. She also reports fever and chills over the last few days. Review of Systems Review of Systems Constitutional: Positive fever and chills [] Respiratory: Denies cough or shortness of breath [] Cardiovascular: No additional information not addressed in HPI [] GI: Complains of abdominal pain with nausea and vomiting. Denies diarrhea. [] Integument: Denies rash or skin lesions [] Neurologic: Denies headache, focal weakness or sensory changes [] All other systems were reviewed and found to be within normal limits, except as documented in this note. Current Medications Current Medications Current Medications Medications (Trade) Dose Ordered Sig/Bishnu Start Time Stop Time Status Last Admin Dose Admin Fentanyl Citrate (Fentanyl 2ml Vial) 50 mcg PRN Q15MIN PRN 06/22/18 10:30 06/23/18 10:29 06/22/18 11:07 50 MCG Info (CONTRAST GIVEN -- Rx MONITORING) 1 each PRN DAILY PRN 06/22/18 11:00 06/24/18 10:59 Iohexol (Omnipaque 300 Mg/ml) 75 ml 1X ONCE 06/22/18 10:45 06/22/18 10:56 DC 06/22/18 10:45 75 ML Ondansetron HCl (Zofran) 4 mg 1X ONCE 06/22/18 10:30 06/22/18 10:39 DC 06/22/18 11:05 4 MG Sodium Chloride 1,000 ml @ 1,000 mls/hr Q1H 06/22/18 10:30 06/22/18 11:29 DC 06/22/18 11:04 1,000 MLS/HR Allergies Allergies Allergies Coded Allergies Type Severity Reaction Last Updated Verified codeine Allergy Intermediate palpitations 11/01/16 Yes levofloxacin Allergy Intermediate severe projectile vomiting 11/01/16 Yes Physical Exam Physical Exam Constitutional: Well developed, well nourished, no acute distress, non-toxic appearance. [] HENT: Normocephalic, atraumatic, bilateral external ears normal, oropharynx moist, no oral exudates, nose normal. [] Eyes: PERRLA, EOMI, conjunctiva normal, no discharge. [] Neck: Normal range of motion, no tenderness, supple. [] Cardiovascular: Regular rate and rhythm [] Lungs & Thorax: Bilateral breath sounds clear to auscultation [] Abdomen: Bowel sounds diminished, soft, with marked tenderness in the left mid to lower abdomen. [] Skin: Warm, dry, no erythema, no rash. [] Extremities: No tenderness, no cyanosis, no clubbing, ROM intact, no edema. [] Neurologic: Alert and oriented X 3, no focal deficits noted. [] Current Patient Data Vital Signs Vital Signs Date Time Temp Pulse Resp B/P (MAP) Pulse Ox O2 Delivery O2 Flow Rate FiO2 06/22/18 11:07 16 96 Room Air Lab Values Laboratory Tests Test 06/22/18 10:01 06/22/18 10:59 Urine Collection Type Unknown Urine Color Yellow Urine Clarity Clear Urine pH 7.0 Urine Specific [place] <=1.005 Urine Protein Negative mg/dL (NEG-TRACE) Urine Glucose (UA) Negative mg/dL (NEG) Urine Ketones (Stick) Negative mg/dL (NEG) Urine Blood Negative (NEG) Urine Nitrite Negative (NEG) Urine Bilirubin Negative (NEG) Urine Urobilinogen Dipstick 0.2 mg/dL (0.2 mg/dL) Urine Leukocyte Esterase Negative (NEG) Urine RBC 0 /HPF (0-2) Urine WBC Occ /HPF (0-4) Urine Squamous Epithelial Cells Mod /LPF Urine Bacteria Few /HPF (0-FEW) Urine Mucus Slight /LPF White Blood Count 8.5 x10^3/uL (4.0-11.0) Red Blood Count 4.71 x10^6/uL (3.50-5.40) Hemoglobin 14.5 g/dL (12.0-15.5) Hematocrit 43.3 % (36.0-47.0) Mean Corpuscular Volume 92 fL (79-100) Mean Corpuscular Hemoglobin 31 pg (25-35) Mean Corpuscular Hemoglobin Concent 34 g/dL (31-37) Red Cell Distribution Width 14.6 % (11.5-14.5) H Platelet Count 219 x10^3/uL (140-400) Neutrophils (%) (Auto) 62 % (31-73) Lymphocytes (%) (Auto) 24 % (24-48) Monocytes (%) (Auto) 5 % (0-9) Eosinophils (%) (Auto) 7 % (0-3) H Basophils (%) (Auto) 1 % (0-3) Neutrophils # (Auto) 5.3 x10^3uL (1.8-7.7) Lymphocytes # (Auto) 2.1 x10^3/uL (1.0-4.8) Monocytes # (Auto) 0.4 x10^3/uL (0.0-1.1) Eosinophils # (Auto) 0.6 x10^3/uL (0.0-0.7) Basophils # (Auto) 0.1 x10^3/uL (0.0-0.2) Sodium Level 144 mmol/L (136-145) Potassium Level 3.8 mmol/L (3.5-5.1) Chloride Level 107 mmol/L (98-107) Carbon Dioxide Level 27 mmol/L (21-32) Anion Gap 10 (6-14) Blood Urea Nitrogen 9 mg/dL (7-20) Creatinine 0.7 mg/dL (0.6-1.0) Estimated GFR (Cockcroft-Gault) 86.6 BUN/Creatinine Ratio 13 (6-20) Glucose Level 97 mg/dL (70-99) Calcium Level 9.1 mg/dL (8.5-10.1) Total Bilirubin 0.4 mg/dL (0.2-1.0) Aspartate Amino Transferase (AST) 18 U/L (15-37) Alanine Aminotransferase (ALT) 25 U/L (14-59) Alkaline Phosphatase 111 U/L (46-116) Total Protein 6.9 g/dL (6.4-8.2) Albumin 3.2 g/dL (3.4-5.0) L Albumin/Globulin Ratio 0.9 (1.0-1.7) L Lipase 89 U/L (73-393) Laboratory Tests 06/22/18 10:59 Laboratory Tests 06/22/18 10:59 EKG EKG [] Radiology/Procedures Radiology/Procedures [] Impressions: REASON: left mid-abdomen pain assoc with abd wall hernia PROCEDURE: CT ABD PELV W/ IV CONTRST ONLY PQRS Compliance statement: One or more of the following individualized dose reduction techniques were utilized for this examination: 1. Automated exposure control. 2. Adjustment of the mA and/or kV according to patient size. 3. Use of iterative reconstruction technique. Indication:left mid-abdomen pain assoc with abd wall hernia INJ 75ML OMNI 300 NO PREV TECHNIQUE: CT abdomen and pelvis with IV contrast with multiplanar reformats. COMPARISON: CT chest from 09/25/2013 FINDINGS: Limited evaluation of solid abdominal and pelvic organs due to lack of IV contrast. Bilateral large calcified nodule is seen in the lung bases. Stable 1 cm noncalcified nodule in the left lower lobe (series 2 image 7). Multiple calcified granulomas seen in the spleen. Liver and spleen are not enlarged. No focal hepatic lesion. Status post gastric bypass. Status post cholecystectomy. Pancreas and adrenals within normal limits. No nephrolithiasis or hydronephrosis. No enlarged retroperitoneal or pelvic adenopathy. No free pelvic fluid or ascites. No bowel obstruction. Normal appendix. Left parasagittal omental fat-containing hernia seen with neck of the hernia measuring 4.8 cm and hernia sac measuring 8.8 x 3.0 cm. Anteverted uterus. Urinary bladder within normal limits. No suspicious bony lesion. IMPRESSION: Limited evaluation of solid abdominal and pelvic organs due to lack of IV contrast. 1. Multiple bilateral large calcified granulomas in the lungs. 2. Stable noncalcified pulmonary nodule in the left lower lobe dating back to 2013 and most likely benign given interval stability. 3. Left parasagittal anterior abdominal wall omental fat-containing hernia. Electronically signed by: Idris Ramon, DO (06/22/2018 12:05 PM) [id number] DICTATED and SIGNED BY: IDRIS RAMON DO DATE: 06/22/18 1200 Course & Med Decision Making Course & Med Decision Making Pertinent Labs and Imaging studies reviewed. (See chart for details) [] Dragon Disclaimer Dragon Disclaimer This electronic medical record was generated, in whole or in part, using a voice recognition dictation system. Departure Departure Impression: Primary Impression: Left sided abdominal pain Additional Impression: Abdominal wall hernia Disposition: HOME, SELF-CARE Condition: LEFT WITHOUT BEING SEEN Referrals: JAMES NEWBY MD (PCP) Patient Instructions: Abdominal Pain, Hernia Scripts Ondansetron Hcl (ZOFRAN) 4 Mg Tablet 4 MG PO PRN TID PRN for NAUSEA, #15 nausea/vomiting Prov: CORDELIA RAO Jr. DO 06/22/18 Tramadol Hcl (TRAMADOL HCL) 50 Mg Tablet 50 MG PO Q6HRS PRN for PAIN, #10 TAB Prov: CORDELIA RAO Jr. DO 06/22/18 Problem Qualifiers CORDELIA RAO Jr. DO Jun 22, 2018 10:48
[2018-06-22] MEDS ORDERED: CONTRAST GIVEN. MC PRN (11:00)
[2018-06-22 11:06] LABS: BASO # 0.1 x10^3/uL (0.0-0.2); BASO % 1 % (0-3); EOS # 0.6 x10^3/uL (0.0-0.7); EOS % 7 % (0-3); HEMATOCRIT 43.3 % (36.0-47.0); HEMOGLOBIN 14.5 g/dL (12.0-15.5); LYMPH # 2.1 x10^3/uL (1.0-4.8); LYMPH % 24 % (24-48); MEAN CORPUSCULAR HEMOGLOBIN 31 pg (25-35); MEAN CORPUSCULAR HGB CONC 34 g/dL (31-37); MEAN CORPUSCULAR VOLUME 92 fL (79-100); MONO # 0.4 x10^3/uL (0.0-1.1); MONO % 5 % (0-9); NEUT # 5.3 x10^3uL (1.8-7.7); NEUT % 62 % (31-73); PLATELET COUNT 219 x10^3/uL (140-400); RED BLOOD COUNT 4.71 x10^6/uL (3.50-5.40); RED CELL DISTRIBUTION WIDTH 14.6 % (11.5-14.5); WHITE BLOOD COUNT 8.5 x10^3/uL (4.0-11.0)
[2018-06-22 11:19] LABS: CALCIUM 9.1 mg/dL (8.5-10.1); CREATININE 0.7 mg/dL (0.6-1.0); GFR 86.6; POTASSIUM 3.8 mmol/L (3.5-5.1)
[2018-06-22 11:25] LABS: ALBUMIN 3.2 g/dL (3.4-5.0); ALBUMIN/GLOBULIN RATIO 0.9 (1.0-1.7); TOTAL BILIRUBIN 0.4 mg/dL (0.2-1.0); TOTAL PROTEIN 6.9 g/dL (6.4-8.2)
[2018-06-22 11:30] VITALS: BP 100/67
[2018-06-22 11:31] LABS: BILIRUBIN,URINE NEGATIVE (NEG); CLARITY,URINE CLEAR; COLOR,URINE YELLOW; NITRITE,URINE NEGATIVE (NEG); PROTEIN,URINE NEGATIVE (NEG-TRACE); UROBILINOGEN,URINE 0.2 mg/dL (0.2 mg/dL)
[2018-06-22 11:36] LABS: BACTERIA,URINE FEW /HPF (0-FEW); RBC,URINE 0 /HPF (0-2); SQUAMOUS EPITHELIAL CELL,UR MOD /LPF; WBC,URINE OCC /HPF (0-4)
--- NOTE | 2018-06-22 12:08 | RAD ---
PQRS Compliance statement: One or more of the following individualized dose reduction techniques were utilized for this examination: 1. Automated exposure control. 2. Adjustment of the mA and/or kV according to patient size. 3. Use of iterative reconstruction technique. Indication:left mid-abdomen pain assoc with abd wall hernia INJ 75ML OMNI 300 NO PREV TECHNIQUE: CT abdomen and pelvis with IV contrast with multiplanar reformats. COMPARISON: CT chest from 09/25/2013 FINDINGS: Limited evaluation of solid abdominal and pelvic organs due to lack of IV contrast. Bilateral large calcified nodule is seen in the lung bases. Stable 1 cm noncalcified nodule in the left lower lobe (series 2 image 7). Multiple calcified granulomas seen in the spleen. Liver and spleen are not enlarged. No focal hepatic lesion. Status post gastric bypass. Status post cholecystectomy. Pancreas and adrenals within normal limits. No nephrolithiasis or hydronephrosis. No enlarged retroperitoneal or pelvic adenopathy. No free pelvic fluid or ascites. No bowel obstruction. Normal appendix. Left parasagittal omental fat-containing hernia seen with neck of the hernia measuring 4.8 cm and hernia sac measuring 8.8 x 3.0 cm. Anteverted uterus. Urinary bladder within normal limits. No suspicious bony lesion. IMPRESSION: Limited evaluation of solid abdominal and pelvic organs due to lack of IV contrast. 1. Multiple bilateral large calcified granulomas in the lungs. 2. Stable noncalcified pulmonary nodule in the left lower lobe dating back to 2013 and most likely benign given interval stability. 3. Left parasagittal anterior abdominal wall omental fat-containing hernia. Electronically signed by: Idris Carey DO (06/22/2018 12:05 PM) [id number]
[2018-06-22] MEDS ORDERED: TRAM50TA PO (12:53)
[2018-06-22] MEDS ORDERED: ONDA4TAB7 PO (12:53)
== END 2018-06-22 13:18 | disposition home or self-care (01) ==
LOC: ER 09:53
DX: K43.9 Ventral hernia without obstruction or gangrene (principal); R11.2 Nausea with vomiting, unspecified; E78.00 Pure hypercholesterolemia, unspecified; Z98.84 Bariatric surgery status; Z88.5 Allergy status to narcotic agent; Z88.1 Allergy status to other antibiotic agents
CPT/HCPCS: 36415; 74177; 80053; 81001; 83690; 85025; 96361; 96374; 96375; 99284; J2405; J3010; J7030; Q9967

== ENCOUNTER 2018-07-02 18:44 | Emergency (ER) | payer OTHER ==
[~2018-07-02] VITALS: Ht 167.6 cm; Wt 97.5 kg
[~2018-07-02 18:44] MED LIST changes: +ONDA4TAB7 PO
[2018-07-02 19:49] LABS: BILIRUBIN,URINE NEGATIVE (NEG); CLARITY,URINE CLEAR; COLOR,URINE YELLOW; NITRITE,URINE NEGATIVE (NEG); PROTEIN,URINE NEGATIVE (NEG-TRACE)
[2018-07-02 19:49] LABS: BASO # 0.1 x10^3/uL (0.0-0.2); BASO % 1 % (0-3); EOS # 0.8 x10^3/uL (0.0-0.7); EOS % 8 % (0-3); HEMATOCRIT 47.2 % (36.0-47.0); HEMOGLOBIN 15.7 g/dL (12.0-15.5); LYMPH # 2.9 x10^3/uL (1.0-4.8); LYMPH % 29 % (24-48); MEAN CORPUSCULAR HEMOGLOBIN 31 pg (25-35); MEAN CORPUSCULAR HGB CONC 33 g/dL (31-37); MEAN CORPUSCULAR VOLUME 93 fL (79-100); MONO # 0.5 x10^3/uL (0.0-1.1); MONO % 5 % (0-9); NEUT # 5.6 x10^3uL (1.8-7.7); NEUT % 57 % (31-73); PLATELET COUNT 229 x10^3/uL (140-400); RED BLOOD COUNT 5.05 x10^6/uL (3.50-5.40); RED CELL DISTRIBUTION WIDTH 14.7 % (11.5-14.5); WHITE BLOOD COUNT 9.8 x10^3/uL (4.0-11.0)
[2018-07-02 19:53] LABS: BACTERIA,URINE MANY /HPF (0-FEW); RBC,URINE OCC /HPF (0-2)
[2018-07-02 19:54] LABS: SQUAMOUS EPITHELIAL CELL,UR MOD /LPF
[2018-07-02 19:55] LABS: BARBITURATES NEG (NEG); BENZODIAZEPINES NEG (NEG); CANNABINOIDS NEG (NEG); COCAINE NEG (NEG); METHADONE NEG (NEG); OPIATES NEG (NEG); PHENCYCLIDINE NEG (NEG)
[2018-07-02 19:59] LABS: AMPHETAMINE/METHAMPHETAMINE NEG (NEG)
[2018-07-02] MEDS ORDERED: KETOROLAC 30 MG/ML VIAL. IV ONE (20:00)
[2018-07-02] MEDS ORDERED: ONDANSETRON PF 4 MG/2 ML VIAL. IV ONE (20:00)
[2018-07-02] MEDS ORDERED: IV NORMAL SALINE 1000ML BAG 1,000 ML IV ONE (20:00)
--- NOTE | 2018-07-02 20:22 | PHYS DOC ---
Past Medical History Past Medical History: High Cholesterol, Other Additional Past Medical Histor: HISTOPLASMOSIS; hernia Past Surgical History: , Other Additional Past Surgical Histo: L FEMUR biop;Rrot cuff, GASTRIC BYPASS, ABLASION, REMOVED HARDWARE,SINUS SX Additional Information: 1.5 PPD Alcohol Use: None Drug Use: None Adult General Chief Complaint Chief Complaint: ABDOMINAL PAIN HPI HPI Patient is a 58 year old female with history of high cholesterol, multiple abdominal surgeries, who presents to the ED today complaining of a generalized 8 out of 10 constant abdominal pain for one week with nausea. Patient denies any vomiting. She states she is concerned she is constipated she states she has not had a bowel movement since June 23, 2018. She states she was seen in the ED on June [address] of the abdomen and pelvic that showed she had a hernia. Patient states she followed up with her PCP. She states she was put on several medications to help her have a bowel movement. She states all she is getting is clear stool. She states every time she burps smells "shit". She states when she was seen in the ED on June 22, 2018 she was d/c on tramadol. She states she only took it for only two days. Review of Systems Review of Systems Constitutional: Denies fever or chills [] Eyes: Denies change in visual acuity, redness, or eye pain [] HENT: Denies nasal congestion or sore throat [] Respiratory: Denies cough or shortness of breath [] Cardiovascular: No additional information not addressed in HPI [] GI: Reports abdominal pain, reports nausea, denies vomiting, bloody stools or diarrhea [] : Denies dysuria or hematuria [] Musculoskeletal: Denies back pain or joint pain [] Integument: Denies rash or skin lesions [] Neurologic: Denies headache, focal weakness or sensory changes [] All other systems were reviewed and found to be within normal limits, except as documented in this note. Current Medications Current Medications Current Medications Medications (Trade) Dose Ordered Sig/Bishnu Start Time Stop Time Status Last Admin Dose Admin Info (CONTRAST GIVEN -- Rx MONITORING) 1 each PRN DAILY PRN 07/02/18 21:45 07/04/18 21:44 Iohexol (Omnipaque 300 Mg/ml) 75 ml 1X ONCE 07/02/18 22:00 07/02/18 22:01 DC 07/02/18 21:56 75 ML Ketorolac Tromethamine (Toradol 30mg Vial) 30 mg 1X ONCE 07/02/18 20:00 07/02/18 20:01 DC 07/02/18 19:46 30 MG Ondansetron HCl (Zofran) 4 mg 1X ONCE 07/02/18 20:00 07/02/18 20:01 DC 07/02/18 19:45 4 MG Sodium Chloride 1,000 ml @ 1,000 mls/hr 1X ONCE 07/02/18 20:00 07/02/18 20:59 DC 07/02/18 19:46 1,000 MLS/HR Allergies Allergies Allergies Coded Allergies Type Severity Reaction Last Updated Verified codeine Allergy Intermediate palpitations 11/01/16 Yes levofloxacin Allergy Intermediate severe projectile vomiting 11/01/16 Yes Physical Exam Physical Exam Constitutional: Well developed, well nourished, no acute distress, non-toxic appearance. [] HENT: Normocephalic, atraumatic, bilateral external ears normal, oropharynx moist, no oral exudates, nose normal. [] Eyes: PERRLA, EOMI, conjunctiva normal, no discharge. [] Neck: Normal range of motion, no tenderness, supple, no stridor. [] Cardiovascular:Heart rate regular rhythm, no murmur [] Lungs & Thorax: Bilateral breath sounds clear to auscultation [] Abdomen: Bowel sounds normal, soft, tenderness diffusely throughout the abdomen , patient refused this exam she states it is painful and does not want anyone pushing on her abdomen, no masses, no pulsatile masses. [] Skin: Warm, dry, no erythema, no rash. [] Back: No tenderness, no CVA tenderness. [] Extremities: No tenderness, no cyanosis, no clubbing, ROM intact, no edema. [] Neurologic: Alert and oriented X 3, normal motor function, normal sensory function, no focal deficits noted. [] Psychologic: Patient appears traumatic, expression of pain worse than physical exam Current Patient Data Vital Signs Vital Signs Date Time Temp Pulse Resp B/P (MAP) Pulse Ox O2 Delivery O2 Flow Rate FiO2 07/02/18 21:22 60 20 118/61 (80) 99 Room Air 07/02/18 19:05 97.9 97.9 Lab Values Laboratory Tests Test 07/02/18 19:19 07/02/18 19:25 07/02/18 21:20 Urine Collection Type Unknown Urine Color Yellow Urine Clarity Clear Urine pH 6.0 Urine Specific [place] 1.010 Urine Protein Negative mg/dL (NEG-TRACE) Urine Glucose (UA) Negative mg/dL (NEG) Urine Ketones (Stick) Negative mg/dL (NEG) Urine Blood Negative (NEG) Urine Nitrite Negative (NEG) Urine Bilirubin Negative (NEG) Urine Urobilinogen Dipstick 1.0 mg/dL (0.2 mg/dL) Urine Leukocyte Esterase Trace (NEG) Urine RBC Occ /HPF (0-2) Urine WBC 1-4 /HPF (0-4) Urine Squamous Epithelial Cells Mod /LPF Urine Bacteria Many /HPF (0-FEW) Urine Opiates Screen Neg (NEG) Urine Methadone Screen Neg (NEG) Urine Barbiturates Neg (NEG) Urine Phencyclidine Screen Neg (NEG) Urine Amphetamine/Methamphetamine Neg (NEG) Urine Benzodiazepines Screen Neg (NEG) Urine Cocaine Screen Neg (NEG) Urine Cannabinoids Screen Neg (NEG) Urine Ethyl Alcohol Neg (NEG) White Blood Count 9.8 x10^3/uL (4.0-11.0) Red Blood Count 5.05 x10^6/uL (3.50-5.40) Hemoglobin 15.7 g/dL (12.0-15.5) H Hematocrit 47.2 % (36.0-47.0) H Mean Corpuscular Volume 93 fL (79-100) Mean Corpuscular Hemoglobin 31 pg (25-35) Mean Corpuscular Hemoglobin Concent 33 g/dL (31-37) Red Cell Distribution Width 14.7 % (11.5-14.5) H Platelet Count 229 x10^3/uL (140-400) Neutrophils (%) (Auto) 57 % (31-73) Lymphocytes (%) (Auto) 29 % (24-48) Monocytes (%) (Auto) 5 % (0-9) Eosinophils (%) (Auto) 8 % (0-3) H Basophils (%) (Auto) 1 % (0-3) Neutrophils # (Auto) 5.6 x10^3uL (1.8-7.7) Lymphocytes # (Auto) 2.9 x10^3/uL (1.0-4.8) Monocytes # (Auto) 0.5 x10^3/uL (0.0-1.1) Eosinophils # (Auto) 0.8 x10^3/uL (0.0-0.7) H Basophils # (Auto) 0.1 x10^3/uL (0.0-0.2) Sodium Level 142 mmol/L (136-145) Potassium Level 4.1 mmol/L (3.5-5.1) Chloride Level 106 mmol/L (98-107) Carbon Dioxide Level 29 mmol/L (21-32) Anion Gap 7 (6-14) Blood Urea Nitrogen 8 mg/dL (7-20) Creatinine 0.7 mg/dL (0.6-1.0) Estimated GFR (Cockcroft-Gault) 86.6 BUN/Creatinine Ratio 11 (6-20) Glucose Level 95 mg/dL (70-99) Calcium Level 8.4 mg/dL (8.5-10.1) L Total Bilirubin 0.3 mg/dL (0.2-1.0) Aspartate Amino Transferase (AST) 15 U/L (15-37) Alanine Aminotransferase (ALT) 18 U/L (14-59) Alkaline Phosphatase 97 U/L (46-116) Total Protein 6.0 g/dL (6.4-8.2) L Albumin 3.1 g/dL (3.4-5.0) L Albumin/Globulin Ratio 1.1 (1.0-1.7) Lipase 93 U/L (73-393) Ethyl Alcohol Level < 10 mg/dL (0-10) Laboratory Tests 07/02/18 19:25 Laboratory Tests 07/02/18 21:20 EKG EKG [] Radiology/Procedures Radiology/Procedures []PROCEDURE: CT ABD PELV W/ IV CONTRST ONLY CT abdomen and pelvis with contrast Clinical Indication: Abdominal pain, constipation, possible bowel obstruction COMPARISON: Abdominal radiograph same day, CT abdomen and pelvis dated 06/22/2018 TECHNIQUE: Multiple contiguous axial images were obtained throughout the abdomen and pelvis with the use of IV contrast. Axial images were reformatted into coronal and sagittal planes. 75 mL Omni 300 was administered. Abdomen findings: Redemonstration of numerous large calcified pulmonary masses. Redemonstration of a noncalcified 1.0 cm left lower lobe nodule. Incompletely visualized mediastinal and left hilar calcified lymph nodes. The liver, gallbladder, spleen, pancreas, and adrenal glands are unremarkable. Cholecystectomy. The kidneys are unremarkable. There is no significant mesenteric or retroperitoneal adenopathy identified. There is no evidence of free intraperitoneal fluid or pneumoperitoneum. Gastric postsurgical changes. Small bowel surgical changes in the left hemiabdomen. Large amount of fatty content within the stools narrow the rectal vault. The remaining portions of the bowel are grossly unremarkable. Normal appendix. Unchanged moderate sized parasagittal fat-containing hernia. Moderate atherosclerosis of the abdominal aorta and its branches. Pelvis findings: The bladder and distal ureters are unremarkable. There is no significant pelvic ascites. No significant iliac or inguinal adenopathy is identified. No acute osseous abnormality. Multilevel degenerative changes of the visualized spine, more advanced at the L5-S1 level. IMPRESSION: No acute intra-abdominal or intrapelvic process. Electronically signed by: Jorge L Ruiz MD (07/02/2018 10:26 PM) [facility] DICTATED and SIGNED BY: JORGE L RUIZ MD DATE: 07/02/182207 Course & Med Decision Making Course & Med Decision Making Pertinent Labs and Imaging studies reviewed. (See chart for details) This is a 58-year-old female patient presenting to the ED today complaining of abdominal pain, concern for constipation, last bowel movement was June 23, 2018. I attempted to do a physical exam this patient abdominal physical exam, patient declined, she seems to overdramatized the pain worse than the physical exam. CBC with normal WBC, hemoglobin 15.7, hematocrit 47.2, patient will follow up with his PCP for this lab findings, CMP with no acute findings, urine analysis with trace amount of leukocytes bite appears contaminated. CT of the abdomen and pelvic was negative for any acute findings. No significant constipation noted. Patient was discharged to home. Provided GI for follow-up. Interestingly after giving patient results she started asking for food and drinking water. She was drinking water at the bedside with no issues. She seemed to have a great appetite. Dragon Disclaimer Dragon Disclaimer This electronic medical record was generated, in whole or in part, using a voice recognition dictation system. Departure Departure Impression: Primary Impression: Abdominal pain Disposition: HOME, SELF-CARE Condition: STABLE Referrals: JAMES NEWBY MD (PCP) follow up in the course of this week PROPECK,DURGA S MD follow up this week Patient Instructions: Abdominal Pain (Nonspecific) Additional Instructions: You were evaluated in the emergency room for abdominal pain. We encourage you to follow-up with your primary care doctor as well as the GI specialist provided. Scripts Ondansetron (ONDANSETRON ODT) 4 Mg Tab.rapdis 1 TAB PO PRN Q6-8HRS, #16 TAB Prov: DIEGO TURK APRN 07/02/18 Problem Qualifiers Primary Impression: Abdominal pain Abdominal location: generalized Qualified Codes: R10.84 - Generalized abdominal pain DIEGO TURK APRN Jul 02, 2018 20:21
--- NOTE | 2018-07-02 20:40 | RAD ---
Abdomen portable supine and upright views 07/02/2018. Reason for exam: Constipation. No free air is seen. Gas is present in what is probably a combination of large and small bowel. There is no evidence of obstruction. Only mild stool is visible. No abnormal masses or gas collections are seen. Rounded opacities at the lung bases correspond to abnormalities demonstrated on prior CT. IMPRESSION: Nonobstructive gas pattern. Electronically signed by: Benedict Patricia Jr., MD (07/02/2018 8:37 PM) [facility]
[2018-07-02 21:22] VITALS: BP 118/61
[2018-07-02 21:38] LABS: CALCIUM 8.4 mg/dL (8.5-10.1); CREATININE 0.7 mg/dL (0.6-1.0); GFR 86.6; POTASSIUM 4.1 mmol/L (3.5-5.1)
[2018-07-02 21:44] LABS: ALBUMIN 3.1 g/dL (3.4-5.0); ALBUMIN/GLOBULIN RATIO 1.1 (1.0-1.7); TOTAL BILIRUBIN 0.3 mg/dL (0.2-1.0)
[2018-07-02] MEDS ORDERED: CONTRAST GIVEN. MC PRN (21:45)
[2018-07-02] MEDS ORDERED: IOHEXOL 300 MG/ML 100ML VIAL. IV ONE (22:00)
--- NOTE | 2018-07-02 22:29 | RAD ---
CT abdomen and pelvis with contrast Clinical Indication: Abdominal pain, constipation, possible bowel obstruction COMPARISON: Abdominal radiograph same day, CT abdomen and pelvis dated 06/22/2018 TECHNIQUE: Multiple contiguous axial images were obtained throughout the abdomen and pelvis with the use of IV contrast. Axial images were reformatted into coronal and sagittal planes. 75 mL Omni 300 was administered. Abdomen findings: Redemonstration of numerous large calcified pulmonary masses. Redemonstration of a noncalcified 1.0 cm left lower lobe nodule. Incompletely visualized mediastinal and left hilar calcified lymph nodes. The liver, gallbladder, spleen, pancreas, and adrenal glands are unremarkable. Cholecystectomy. The kidneys are unremarkable. There is no significant mesenteric or retroperitoneal adenopathy identified. There is no evidence of free intraperitoneal fluid or pneumoperitoneum. Gastric postsurgical changes. Small bowel surgical changes in the left hemiabdomen. Large amount of fatty content within the stools narrow the rectal vault. The remaining portions of the bowel are grossly unremarkable. Normal appendix. Unchanged moderate sized parasagittal fat-containing hernia. Moderate atherosclerosis of the abdominal aorta and its branches. Pelvis findings: The bladder and distal ureters are unremarkable. There is no significant pelvic ascites. No significant iliac or inguinal adenopathy is identified. No acute osseous abnormality. Multilevel degenerative changes of the visualized spine, more advanced at the L5-S1 level. IMPRESSION: No acute intra-abdominal or intrapelvic process. Electronically signed by: Jorge L Duong MD (07/02/2018 10:26 PM) [facility]
[2018-07-02] MEDS ORDERED: ONDA4TAB12 PO (22:48)
== END 2018-07-02 22:51 | disposition home or self-care (01) ==
LOC: ER 18:44
DX: R10.84 Generalized abdominal pain (principal); R11.0 Nausea; E78.00 Pure hypercholesterolemia, unspecified; Z98.84 Bariatric surgery status; F17.200 Nicotine dependence, unspecified, uncomplicated; Z88.1 Allergy status to other antibiotic agents; Z88.5 Allergy status to narcotic agent
CPT/HCPCS: 36415; 74021; 74177; 80053; 80307; 81001; 83690; 85025; 87086; 96374; 96375; 99284; G0480; J1885; J2405; J7030; Q9967

== ENCOUNTER → 2020-10-21 | Outpatient (CLI) | payer OTHER ==
[~2020-10-21] MED LIST changes: +CLON-77 PO; -CLON0.5T11 PO; -LAMO150T2 PO; +LAMO150T4 PO; -OMEP20CA10 PO; +OMEP20CA16 PO; +ONDA4TAB12 PO
--- NOTE | 2020-10-21 16:18 | KCIC ---
Bilateral digital screening mammograms: Reason for examination: Routine screening. Comparison is made to previous studies dated 02/14/2017 and 02/14/2012. Interpretation was made with the benefit of CAD. The skin and nipples show no abnormalities. No abnormal axillary lymph nodes are seen. The breast par enchyma shows scattered fibroglandular density. (Breast density: Category B.) There continues to be a small circumscribed nodule anteriorly in the upper outer quadrant of the left breast which is stable . There are no new dominant masses, suspicious calcifications or architectural distortions. A few kathleen ign calcifications are present. Impression: No evidence of malignancy. Recommend routine screening. BI-RADS category 2: Benign "Our facility is accredited by the [employer] Mammography [employer]." This patient's information has been entered into a reminder system for the patient to be notified wit h the results of her examination and a target date for the next mammogram. Electronically signed by: Anastacia aVsquez MD (10/21/2020 4:16 PM) [id number]
== END ==
LOC: KCIC MAMMO 15:02
PROVIDERS: ATTEND Family Medicine
DX: Z12.31 Encounter for screening mammogram for malignant neoplasm of breast (principal)
CPT/HCPCS: 77067